=== PATIENT | male | born 1955 | race Caucasian/White ===

== ENCOUNTER 2018-09-26 08:09 | Emergency (ER) | payer OTHER, SELFPAY ==
[2018-09-26 08:10] VITALS: BP 158/82; PULSE 90; RESP 20; TEMP 37.7; O2SAT 98; BMI 25.2
--- NOTE | 2018-09-26 08:36 | ED.VIS.GEN ---
History of Present Illness Chief Complaint: Fever Informant: Patient, Significant Other Onset: Days - Onset 3 days ago with T-max of 101.0 ?F Context: Sudden Onset Timing: Intermittent Quality: Shaking chills and fever Location: Generalized Current Severity: Mild Maximum Severity: Moderate Worsened by: Nothing Relieved by: Ibuprofen Associated Symptoms: Mild discomfort bridge of the nose Narrative: Patient is a 62-year-old male who presents with fever with shaking chills the past 3 days. T-max 101.0 ?F. He complains of mild forehead discomfort intermittently. The discomfort is not positional. He denies rhinorrhea, congestion or postnasal drainage. He denies earache, decreased hearing or ear pain. He denies sore throat. He denies cough or shortness of breath. He had shortness of breath with extreme activity this past Tuesday when there was a heat advisory. He denied wheezing. He denies nausea, vomiting or diarrhea. He denies dysuria, frequency, urgency or hematuria. He denies rash. He denies myalgias or arthralgias. He denies photophobia. He denies neck pain or neck stiffness. He denies ill contacts. Prior similar symptoms: No Recent Illness/Hospitalization: No - Past Medical History (1) No significant past medical history Status: Acute Past Medical History - Allergies and Home Meds Allergies/Adverse Reactions: Allergies No Known Allergies Allergy (Verified 09/26/18 08:12) Primary Care Physician: Care Physician,No Primary [Primary Care Provider] - Prior records reviewed: No - There are no prior records for review Surgical History: no surgical history Lives: Spouse/ Significant Other Smoking Status: Never smoker Alcohol: None Drugs: None Review of Systems General: Reports: Chills, Fever, Sweats. Denies: Malaise, Subjective, Weight loss Eyes: Denies: Visual changes - bilaterally, Blurred Vision - bilaterally, Diplopia ENT: Denies: Bilateral ear pain, Rhinorrhea, Sore throat Cardiovascular: Denies: Chest pain, Palpitations, Heart racing Respiratory: Denies: Dyspnea, Cough, Dyspnea on exertion, Orthopnea Gastrointestinal: Denies: Abdominal pain, Nausea, Vomiting, Diarrhea, Melena, Hematochezia Genitourinary: Denies: Dysuria, Hematuria, Frequency Musculoskeletal: Reports: Swelling - Swelling left elbow secondary to trauma 1 week ago. Denies: Myalgias, Arthralgias, Neck pain, Back pain, Extremity Pain Skin: Reports: Wounds - Elbow wound secondary to blunt trauma. He did not seek medical attention for the injury.. Denies: Rash, Abscess, Abrasions Neurological: Reports: Headache. Denies: Weakness, Parasthesia, Numbness Hematologic: Denies: Easy bruising, Easy bleeding Allergy: Denies: Uticaria, Swelling of the mouth, Swelling of the tongue Physical Exam Vital Signs/Narrative: Vital Signs Temp Pulse Resp BP Pulse Ox 09/26/18 08:10 99.8 F H 90 20 H 158/82 H 98 Inital Vital Signs reviewed: Yes General: Well nourished, Well developed, No Acute Distress Head: Normocephalic, Atraumatic Eyes: Perrl, EOMI, - - There is no photophobia.. Negative for: Pale conjunctiva, Scleral icterus ENT: Moist mucous membranes, No rhinorrhea, TM's clear. Negative for: Nasal congestion, Sinus tenderness Neck: Supple, Nontender, No lymphadenopathy, No JVD Cardiovascular: Regular rate, Regular rhythm, No murmurs, Normal S1, Normal S2 Respiratory: No distress, CTA bilaterally, Chest nontender Abdomen: Soft, Nontender, Nondistended, Normal bowel sounds Back: Nontender, Normal Inspection. Negative for: CVA tenderness Extremities: Nontender, No edema Skin: Normal color, No rash, Trauma - Is a wound over the left olecranon process. There is fluctuance. There is no erythema, warmth, induration. There is no lymphangitis. There is no axillary lymphadenopathy. Findings are consistent with an olecranon bursitis. Neurological: Alert, Oriented x3, Cranial nerves II-XII grossly intact, Normal Strength, Normal Sensation Psychological: Normal affect, Normal Mood Diagnostic/Tx/Re-eval Chest X-Ray - ED: 2 View, Read by ED Physician, Normal, Heart, Mediastinum, Bony Structures, Left Infiltrate, - - X-ray reveals a infiltrate left upper lobe. 09/26/18 09:53 Chest PA and Lateral [RAD] Stat 09/26/18 08:20 Fluid - Synovial (joint) Gram Stain - Final Laboratory Results 09/26/18 09/26/18 09/26/18 08:20 08:40 08:40 WBC 6.9 RBC 4.19 L Hgb 12.6 L Hct 37.7 L MCV 90.0 MCH 30.1 MCHC 33.4 RDW Std Deviation 40.9 RDW Coeff of Sri 12.4 Plt Count 174 MPV 8.8 Immature Gran % (Auto) 0.300 Neut % (Auto) 80.1 H Lymph % (Auto) 8.1 L [place] % (Auto) 10.9 H Eos % (Auto) 0.3 Baso % (Auto) 0.3 Absolute Neuts (auto) Not Reportable Absolute Lymphs (auto) 0.56 L Absolute Nucleated RBC 0.00 Nucleated RBC % 0 Platelet Estimate ADEQUATE RBC Morphology NORM C+C Sodium 137 Potassium 3.8 Chloride 104 Carbon Dioxide 30.0 Anion Gap 3 L BUN 12 Creatinine 0.88 Estim Creat Clear Calc 83.46 Est GFR (MDRD) Af Amer 114 Est GFR (MDRD) Non-Af 94 BUN/Creatinine Ratio 13.7 Glucose 96 Lactic Acid Calcium 9.1 Synovial WBC 0.2640 H Synovial RBC 0.108 H Synovial Tot Cell Ct 0.2740 H Synov Polynuclear WBCs 0.114 Synovial Polynuclear % 43.2 Synovial Mononuclear % 56.8 09/26/18 08:40 WBC RBC Hgb Hct MCV MCH MCHC RDW Std Deviation RDW Coeff of Sri Plt Count MPV Immature Gran % (Auto) Neut % (Auto) Lymph % (Auto) [place] % (Auto) Eos % (Auto) Baso % (Auto) Absolute Neuts (auto) Absolute Lymphs (auto) Absolute Nucleated RBC Nucleated RBC % Platelet Estimate RBC Morphology Sodium Potassium Chloride Carbon Dioxide Anion Gap BUN Creatinine Estim Creat Clear Calc Est GFR (MDRD) Af Amer Est GFR (MDRD) Non-Af BUN/Creatinine Ratio Glucose Lactic Acid 1.8 Calcium Synovial WBC Synovial RBC Synovial Tot Cell Ct Synov Polynuclear WBCs Synovial Polynuclear % Synovial Mononuclear % Patient's port score is 60. Risk class is II and outpatient treatment is reasonable, barring other factors affecting care. Since there are no other factors he is safe to be treated at home. - Medical Decision Making Presents with fever and chills for the past 3 days. Only objective finding is a left olecranon bursitis. Patient was verbally consented for needle aspiration. Will obtain blood cultures and appropriate blood work. Fluid was sent for Gram stain culture and cell count. I was informed at 0855 that patient's temperature is greater than 103. Significant milligrams of Tylenol was ordered. Since chest x-ray reveals an infiltrate he received 100 mg of levofloxacin. Once all lab results are back will calculate his port score. Suspect he is a candidate for outpatient treatment. (8006) Procedures Procedure(s): Needle aspirate of left olecranon bursa was undertaken. The area was prepped draped in customary fashion. The skin was cleaned with ChloraPrep. 18-gauge needle was inserted with aspiration of bloody fluid. A total of 2 cc was aspirated. ED Disposition - Plan for ED Patient: Disposition: Home or Assisted Living Diagnosis: Community acquired pneumonia of left upper lobe of lung Instructions: PNEUMONIA (Adult) Prescriptions: Levofloxacin [Levaquin] 750 mg PO DAILY #6 tab Transmission Status: Pending to [id number] Referrals: Care Physician,No Primary [Primary Care Provider] - Dana Bassett MD [STAFF PHYSICIAN] -
[2018-09-26 08:50] LABS: Absolute Lymphocyte Count 0.56 X10^3/uL (0.83-4.51); Basophil# 0.02 X10^3/uL; Basophil% 0.3 % (0-1); Eosinophil# 0.02 X10^3/uL; Eosinophils% 0.3 % (0-5); Hematocrit 37.7 % (40-54); Hemoglobin 12.6 g/dL (13.0-16.5); Lymphocyte # 0.56 X10^3/ul (4.0); Lymphocyte % 8.1 % (19-41); Mean Corp Hgb Conc 33.4 g/dL (32-36); Mean Corpuscular Hgb 30.1 pg (27.0-32.0); Mean Platelet Vol. 8.8 fl (6.2-12.0); Monocyte# 0.75 X10^3/uL; Monocyte% 10.9 % (0-10); NRBC Flagged by Analyzer 0 % (0-5); Neutrophil # 5.54 X10^3/uL (2.7-7.7); Neutrophil % 80.1 % (47-70); POSITIVE DIFFERENTIAL YES; Platelet Count 174 K/mm3 (150-450); RBC Distribution Width CV 12.4 % (11.6-14.6); RBC Distribution Width SD 40.9 fl (35.1-43.9); Red Blood Count 4.19 M/mm3 (4.6-6.2); White Blood Count 6.9 K/mm3 (4.4-11.0)
[2018-09-26 09:00] VITALS: BP 163/79; PULSE 83; RESP 16; TEMP 39.5; O2SAT 97
[2018-09-26 09:02] LABS: Anion Gap 3 (5-15); BUN 12 mg/dL (7-18); BUN/Creat Ratio 13.7 RATIO (10-20); Calcium,Total 9.1 mg/dL (8.5-10.1); Chloride 104 mmol/L (98-107); Creatinine, Serum 0.88 mg/dL (0.70-1.30); EST Glomerular Filtration Rate 94 mL/min (>60); Est Glom Filt Rate - Afr Amer 114 mL/min (>60); Estimated Creatinine Clearance 83.46 ml/min; Glucose 96 mg/dL (74-106); Potassium 3.8 mmol/L (3.5-5.1); Sodium Level 137 mmol/L (136-145)
[2018-09-26] MEDS: Acetaminophen 325 MG Tablet 650 MG PO (09:07)
[2018-09-26 09:08] LABS: RBC /Synovial Fluid 0.108 10^6/uL (0); Synovial Fld Mononuclear WBC % 56.8 %; Synovial Fld Polynuclear WBC # 0.114 10^3/uL; Synovial Fld Polynuclear WBC % 43.2 %
[2018-09-26 09:14] LABS: Lactic Acid 1.8 mmol/L (0.4-2.0)
[2018-09-26 09:32] LABS: Differential Indicated SCAN CRITERIA MET
[2018-09-26 09:38] LABS: Platelet Estimate ADEQUATE (ADEQ); Red Cell Morphology NORM C+C NORMAL (NORM C&C)
[2018-09-26 09:52] VITALS: BP 153/77; PULSE 82; RESP 14; TEMP 38.8
--- NOTE | 2018-09-26 09:53 | RAD_ITS ---
STUDY: X-RAY CHEST REASON FOR EXAM: Male, 62 years old. Fever and cough TECHNIQUE: PA and lateral views of the chest. COMPARISON: None. FINDINGS: Lungs are expanded. Right lung is clear. There is a left perihilar pneumonia without pleural effusion. Follow-up recommended to assure resolution. There is no demonstrated pleural abnormality. Normal size heart. Normal mediastinum and rosalba. Normal visualized pulmonary arteries. Normal visualized aortic arch and descending thoracic aorta. Normal visualized thoracic spine. Normal visualized ribs, clavicles, and shoulders. There is no demonstrated abnormality of the visualized soft tissue structures of the upper abdomen. RAD/Chest PA and Lateral IMPRESSION: Left perihilar infiltrate, follow-up recommended to assure resolution Electronically Signed: Jens Rincon MD at 10:12 EDT , Service support ,
[2018-09-26] MEDS: levoFLOXacin IV 750 MG/150 ML BAG 100 MG IV (10:17)
[2018-09-26 11:00] VITALS: BP 149/79; PULSE 79; RESP 16; TEMP 37.6; O2SAT 95
[2018-09-26 11:20] LABS: AUTO B FLUID DILUENT BKGD CT WBC <0.1 RBC <0.01 (W<.1,R<.01)
[2018-09-26 11:21] LABS: Color / Synovial Fluid Red (Pale Yellow)
[2018-09-26 11:22] LABS: Appearance /Synovial Fluid Hazy (CLEAR); Lymph 24 %; Monocyte /Synovial Fluid 28 %; Neutrophil 49 % (0-25)
[2018-09-26 11:23] LABS: Body Fluid QC Type(s) BF1Q
[2018-09-26 12:00] VITALS: BP 147/79; PULSE 78; RESP 16; TEMP 37.4; O2SAT 95
[2018-09-27 09:40] LABS: Pathologist Comment Reviewed
== END 2018-09-26 12:35 | disposition home or self-care (01) ==
PROVIDERS: Emergency Provider Emergency Medicine
DX: J18.9 Pneumonia, unspecified organism (principal); M70.22 Olecranon bursitis, left elbow; Y92.9 Unspecified place or not applicable
CPT/HCPCS: 20605; 71046; 80048; 83605; 85025; 87040; 87070; 87075; 87205; 89050; 89051; 96360; 96361; 99284; J7050; A4216

== ENCOUNTER → 2023-02-16 | Outpatient (CLI) | payer MEDICARE, OTHER, SELFPAY ==
[2023-02-16 12:11] LABS: Absolute Lymphocyte Count 0.97 X10^3/uL (0.83-4.51); Absolute Neutrophil Count 2.5 X10^3/uL (2.0-7.7); Basophil# 0.03 X10^3/uL; Basophil% 0.7 % (0-1); Eosinophil# 0.13 X10^3/uL; Eosinophils% 3.2 % (0-5); Hematocrit 43.8 % (40-54); Hemoglobin 14.2 g/dL (13.0-16.5); Lymphocyte # 0.97 X10^3/ul (0.83-4.51); Lymphocyte % 24.2 % (19-41); Mean Corp Hgb Conc 32.4 g/dL (32-36); Mean Corpuscular Hgb 29.6 pg (27.0-32.0); Mean Corpuscular Volume 91.3 fL (80-94); Mean Platelet Vol. 9.3 fl (6.2-12.0); Monocyte# 0.36 X10^3/uL; NRBC Flagged by Analyzer 0 % (0-5); Neutrophil # 2.51 X10^3/uL (2.7-7.7); Neutrophil % 62.7 % (47-70); Platelet Count 201 K/mm3 (150-450); RBC Distribution Width CV 12.6 % (11.6-14.6); RBC Distribution Width SD 42.4 fl (35.1-43.9)
[2023-02-16 13:26] LABS: AST(SGOT) 21 U/L (15-37); Alanine Aminotransfer ALT/SGPT 28 U/L (16-61); Albumin, Serum 3.5 g/dL (3.2-5.0); Alkaline Phosphatase 38 U/L (45-117); Anion Gap 6 (5-15); BUN 21 mg/dL (7-18); BUN/Creat Ratio 26.7 RATIO (10-20); Calcium,Total 8.7 mg/dL (8.5-10.1); Chloride 111 mmol/L (98-107); Cholesterol 166 mg/dL (200); Creatinine, Serum 0.79 mg/dL (0.70-1.30); EST Glomerular Filtration Rate 105 mL/min (>60); Est Glom Filt Rate - Afr Amer 127 mL/min (>60); Globulin 3.6 g/dL (2.2-4.2); Glucose 78 mg/dL (74-106); High Density Lipoprotein 62 mg/dL; Potassium 3.8 mmol/L (3.5-5.1); Protein, Total 7.1 g/dL (6.4-8.2); Sodium Level 143 mmol/L (136-145); Thyroid Stim Hormone (TSH) 1.57 uIU/mL (0.358-3.74); Triglycerides 57 mg/dL; Very Low Density Lipoprotein 11 mg/dL (5-40)
== END | disposition home or self-care (01) ==
LOC: MFPLAB 09:53
PROVIDERS: PCP Family Medicine; Visit Provider Family Medicine
DX: I10 Essential (primary) hypertension (principal)
CPT/HCPCS: 36415; 80053; 80061; 84443; 85025

== ENCOUNTER → 2024-03-23 | Outpatient (CLI) | payer MEDICARE, OTHER, SELFPAY ==
[2024-03-23 17:39] LABS: Absolute Lymphocyte Count 1.44 X10^3/uL (0.83-4.51); Absolute Neutrophil Count 4.4 X10^3/uL (2.0-7.7); Basophil# 0.05 X10^3/uL; Basophil% 0.8 % (0-1); Eosinophil# 0.23 X10^3/uL; Eosinophils% 3.5 % (0-5); Hematocrit 42.8 % (40-54); Hemoglobin 14.1 g/dL (13.0-16.5); Lymphocyte # 1.44 X10^3/ul (0.83-4.51); Lymphocyte % 21.8 % (19-41); Mean Corp Hgb Conc 32.9 g/dL (32-36); Mean Corpuscular Hgb 29.9 pg (27.0-32.0); Mean Corpuscular Volume 90.7 fL (80-94); Mean Platelet Vol. 9.2 fl (6.2-12.0); Monocyte# 0.46 X10^3/uL; NRBC Flagged by Analyzer 0 % (0-5); Neutrophil # 4.41 X10^3/uL (2.7-7.7); Neutrophil % 66.6 % (47-70); Platelet Count 245 K/mm3 (150-450); RBC Distribution Width CV 12.6 % (11.6-14.6); RBC Distribution Width SD 41.9 fl (35.1-43.9); Red Blood Count 4.72 M/mm3 (4.6-6.2); White Blood Count 6.6 K/mm3 (4.4-11.0)
[2024-03-23 18:12] LABS: ALB/GLOB Ratio 1.1 RATIO (0.9-2.4); AST(SGOT) 22 U/L (15-37); Alanine Aminotransfer ALT/SGPT 30 U/L (16-61); Albumin, Serum 3.7 g/dL (3.2-5.0); Alkaline Phosphatase 42 U/L (45-117); Anion Gap 6 (5-15); BUN 24 mg/dL (7-18); BUN/Creat Ratio 29.4 RATIO (10-20); Calcium,Total 9.6 mg/dL (8.5-10.1); Chloride 109 mmol/L (98-107); Cholesterol 177 mg/dL (200); Creatinine, Serum 0.82 mg/dL (0.70-1.30); EST Glomerular Filtration Rate 100 mL/min (>60); Est Glom Filt Rate - Afr Amer 121 mL/min (>60); Globulin 3.5 g/dL (2.2-4.2); Glucose 97 mg/dL (74-106); High Density Lipoprotein 62 mg/dL; PSA,Total - Annual Screen 8.15 ng/mL (0.00-4.00); Potassium 3.8 mmol/L (3.5-5.1); Protein, Total 7.2 g/dL (6.4-8.2); Sodium Level 139 mmol/L (136-145); Triglycerides 82 mg/dL; Very Low Density Lipoprotein 16 mg/dL (5-40)
== END | disposition home or self-care (01) ==
LOC: MFPLAB 14:41
PROVIDERS: PCP Family Medicine; Referring Provider Family Medicine; Visit Provider Family Medicine
DX: I10 Essential (primary) hypertension (principal); Z12.5 Encounter for screening for malignant neoplasm of prostate
CPT/HCPCS: 36415; 80053; 80061; 84153; 85025; G0103

== ENCOUNTER 2024-06-02 07:47 | Outpatient (CLI) | payer MEDICARE, OTHER, SELFPAY ==
[2024-06-02 10:10] LABS: PSA,Total- Diagnostic 4.74 ng/mL (0.00-4.00)
== END 2024-06-02 23:59 | disposition home or self-care (01) ==
LOC: LAB 07:51
PROVIDERS: PCP Family Medicine; Referring Provider Family Medicine; Visit Provider Family Medicine
DX: Z00.00 Encounter for general adult medical examination without abnormal findings (principal)
CPT/HCPCS: 36415; 84153

== ENCOUNTER → 2024-10-16 | Outpatient (CLI) | payer MEDICARE, OTHER, SELFPAY ==
[2024-10-17 14:08] LABS: PSA, Free 0.87 ng/mL; PSA, Free % 18.1 % (.); PSA, Total Ultrasensitive 4.800 ng/mL (0.000-4.000)
== END | disposition home or self-care (01) ==
LOC: LAB 09:28
PROVIDERS: PCP Family Medicine; Referring Provider Urology; Visit Provider Urology
DX: R97.20 Elevated prostate specific antigen [PSA] (principal)
CPT/HCPCS: 36415; 84153; 84154